=== PATIENT | male | born 1945 | race Caucasian/White ===

== ENCOUNTER 2018-12-20 12:13 | Observation (INO) ==
--- NOTE | 2018-12-20 12:28 | Emergency Department Note ---
Disposition Clinical Impression: Sinus tachycardia, Lightheadedness, Pre-syncope, Orthostatic dizziness Disposition: Admitted As Inpatient Condition: Fair Time of Disposition: 19:47 Arrhythmia/Palpitations HPI - General Chief Complaint: ED Arrhythmia/Palpitations Stated Complaint: dysrythmia Time Seen by Provider: 12/20/18 12:14 Source: patient, EMS Limitations: no limitations - History of Present Illness HPI Narrative: 73-year-old male past medical history of the last 2 weeks experiencing palpitations, shortness breath lightheadedness and dizziness was stented by Dr. Morfin approximately 9 days ago for coronary artery blockage. Patient believed he was in atrial fibrillation but was found to be in SVT at that time was put on 25 mg of metoprolol succinate for rate control her. Patient states he has continued being lightheaded/dizzy since this time that this morning he experienced a presyncopal episode at home. Patient denies any trauma during this event since he was able to sit down on the floor but continued to be dizzy and nearly lost consciousness. Patient states that when he feels this way he also gets short of breath. Patient also notes he has been having some dark colored stools consistent with melena over the past few days. However he denies any other concerns or complaints at this time. Upon my initial evaluation, my general impression is that the patient is tachycardic into the 140 range, he is otherwise awake, alert, oriented, engaged to conversation and answering questions appropriately. There are no overt lat eralizing signs, the patient is in no acute distress; their skin appears to be normal in color, they are not pale, not cyanotic, and not diaphoretic, they are sitting up in hospital bed interacting appropriately with environment. Pt Subjective Complaint: rapid heart beat, "heart racing" Onset (ago): week(s) Duration: intermittent Severity: severe, similar to previous episodes Context: occurred during rest Arrhythmia History: on anti-coagulants Associated symptoms: Reports: shortness of breath, near-syncope Treatments prior to arrival: beta-maureen - Related Data Home Medications Medication Instructions Recorded Confirmed Aspirin [Lo-Dose Aspirin EC] 81 mg PO DAILY 12/02/18 12/20/18 Atorvastatin [Lipitor] 10 mg PO HS 12/02/18 12/20/18 Cetirizine HCl [Allergy Relief] 10 mg PO DAILY 12/02/18 12/20/18 Chlorthalidone 25 mg PO DAILY 12/02/18 12/20/18 Docusate Sodium [Dulcolax Stool 100 mg PO DAILY 12/02/18 12/20/18 Softener] Enalapril Maleate [Vasotec] 20 mg PO BID 12/02/18 12/20/18 Metoprolol Succinate [Kapspargo 25 mg PO DAILY 12/02/18 12/20/18 Sprinkle] Naproxen Sod/Diphenhydram HCl 1 each PO HS PRN 12/02/18 12/20/18 [Aleve Pm Caplet] Potassium Chloride [K-Tab ER] 20 meq PO BID 12/02/18 12/20/18 Terazosin HCl 10 mg PO DAILY 12/02/18 12/20/18 Previous Rx's Medication Instructions Recorded Ticagrelor [Brilinta] 90 mg PO BID #60 tablet 12/02/18 Allergies Allergy/AdvReac Type Severity Reaction Status Date / Time No Known Allergies Allergy Unverified 11/30/18 08:38 Review of Systems: *See History of Present Illness for more detail Constitutional: Denies: fever, chills Cardiovascular: Denies: chest pain Respiratory: Admits: dyspnea, denies: cough, hemoptysis Gastrointestinal: Denies: abdominal pain, nausea, vomiting, diarrhea, constipation, hematemesis, melena, hematochezia Genitourinary: Denies: hematuria Musculoskeletal: Denies: back pain, neck pain Neurological: Admits weakness, lightheadedness dizziness, presyncope. Denies: headache, numbness, paresthesias, difficulty with ambulation. Endocrine: Denies: fatigue All systems ED: reviewed and negative except as stated. Review of Systems: As Per HPI Past Medical History - Past Medical History Medical history: Reports: hypertension Psychiatric history: Reports: no psych history - Social History Smoking Status: Never smoker Smokeless Tobacco Status: No Alcohol use: Reports: none Drug use: Reports: none Physical Exam Constitutional: No acute distress, [id number], engaged to conversation, speech is fluid, answers questions appropriately Neuro: GCS 15, no overt focal neurological deficits Head: Atraumatic, normocephalic Eyes: Pupils equal, round and reactive to light, no scleral icterus, no conjunctival injection Neck: Trachea midline without deviation. Anterior neck is supple without swelling. *Chest: Symmetric chest wall rise *Heart: Cardiac rate is tachycardic with an irregular rhythm with S1 and S2 , no S3 or S4 appreciated, no murmurs, gallops, rubs, or clicks. *Lungs: Lungs are clear to auscultation bilaterally, without accessory muscle use or prolonged expiratory phase. No wheezes, rhonchi or stridor appreciated. Abdomen: Abdomen is flat, soft to palpation, normal bowel sounds. No abdominal bruit auscultated. Non-distended, non-rigid, no organomegaly, no ascites appreciated. No pulsatile mass, no tenderness or guarding to palpation in all four quadrants, no rebound Extremities: Normal capillary refill without evidence of pedal edema, joint swelling or erythema. Pulses/motor intact in extremities. Psychiatric exam: Patient displays a normal affect and mood for the environment. No overt signs of hallucination. Integumentary: warm, dry, intact, normal color. No rash, cyanosis, diaphoresis, erythema, or pallor - General Limitations: no limitations General appearance: alert, in no apparent distress Course Course Narrative: EKG/old EKG, chest x-ray, basic labs to include troponin, occult stool and TSH. D-dimer. - Reevaluation(s) Reevaluation #1: Patient found to have elevated d-dimer we will get CTA. Patient reports to my attending physician that he had been exerting himself doing yardwork recently feels that he may be dehydrated. We will give him 1 L of fluid and reassess. This may explain patient's tachycardia Reevaluation #2: Patient heart rate down to the 90s prior to ambulation. Upon standing the patient's heart rate went up to 140. We will give patient additional 2 L of fluid as at 110 kg he is able to tolerate 3 L without difficulty in the setting of no prior CHF history. Labs are otherwise unremarkable. Vital Signs Temperature 98.6 F 12/20/18 12:18 Pulse Rate 135 12/20/18 12:18 Respiratory Rate 20 12/20/18 12:18 Blood Pressure 117/79 12/20/18 12:18 O2 Sat by Pulse Oximetry 95 12/20/18 12:18 Temperature 98.6 F 12/20/18 12:18 Pulse Rate 99 12/20/18 17:32 Respiratory Rate 16 12/20/18 17:32 Blood Pressure 134/98 12/20/18 17:32 O2 Sat by Pulse Oximetry 95 12/20/18 17:32 Oxygen Delivery Oxygen Delivery Room Air Arrhythmia/Palpitations - [facility] Narrative Medical decision making narrative: The patients EKG, imaging, and laboratory results show slightly low white count, elevated d-dimer without findings of pulmonary embolism on CTA. Positive stool Hemoccult. Otherwise negative workup. . Evaluation results were discussed with the patient and their family member(s) at bedside. Patient was given time to ask questions and state concerns. The patient states that they have had significant relief of their symptoms with our management here in the ED. upon attempting to ambulate the patient he became lightheaded and dizzy and tachycardic a second time after 2 L of fluid. The patient will be admitted to the hospitalist medicine service for further evaluation and management of tachycardia, orthostatic intolerance, lightheadedness and dizziness. . The patient verbalizes their understanding and agreement with this plan and is hemodynamically stable at the time of admission. - Lab Data Lab results reviewed: Yes I reviewed the patient's lab results. Result diagrams: 12/20/18 12:37 12/20/18 12:37 Lab Results 12/20/18 12/20/18 12/20/18 Range/Units 12:37 12:37 12:37 WBC 14.1 H (4.3-11.1) K/mcL RBC 4.88 (4.19-5.50) M/mcL Hgb 13.7 (12.9-16.9) g/dL Hct 40.5 (37.5-50.1) % MCV 83.0 (83.0-100.0) fL MCH 28.1 (28.0-33.3) pg MCHC 33.8 (31.6-35.5) g/dL RDW 12.3 (11.5-14.5) % Plt Count 243 (140-400) K/mcL MPV 9.7 (9.4-12.4) fL Immature Gran % 0.6 (0-4) % Seg Neutrophils % 83.1 % Lymphocytes % 11.7 % Monocytes % 4.1 % Eosinophils % 0.3 % Basophils % 0.2 % Neutrophils # 11.7 H (1.6-8.9) K/mcL Lymphocytes # 1.6 (0.6-4.6) K/mcL Monocytes # 0.6 (0.0-1.3) K/mcL Eosinophils # 0.0 (0.0-0.6) K/mcL Basophils # 0.0 (0.0-0.2) K/mcL PT 12.1 (9.4-12.1) Seconds INR 1.1 APTT 28.8 (26.0-36.0) Seconds D-Dimer 2134 H (0-500) ng/mLFEU Sodium 138 (136-145) mEq/L Potassium 3.7 (3.5-5.1) mEq/L Chloride 106 (98-107) mEq/L Carbon Dioxide 24 (23-29) mEq/L BUN 52 H (8-23) mg/dL Creatinine 1.09 (0.70-1.30) mg/dL Est GFR ( Amer) > 60 (> 60) Est GFR (Non-Af Amer) > 60 (> 60) BUN/Creatinine Ratio 48 H (6-26) Glucose 144 H (70-105) mg/dL Calculated Osmolality 303 H (280-300) Calcium 9.6 (8.6-10.3) mg/dL Troponin I < 0.03 (< 0.04) ng/mL TSH 1.323 (0.340-5.600) mcIU/mL Stool Occult Bld Scrn (Negative) 12/20/18 Range/Units 13:21 WBC (4.3-11.1) K/mcL RBC (4.19-5.50) M/mcL Hgb (12.9-16.9) g/dL Hct (37.5-50.1) % MCV (83.0-100.0) fL MCH (28.0-33.3) pg MCHC (31.6-35.5) g/dL RDW (11.5-14.5) % Plt Count (140-400) K/mcL MPV (9.4-12.4) fL Immature Gran % (0-4) % Seg Neutrophils % % Lymphocytes % % Monocytes % % Eosinophils % % Basophils % % Neutrophils # (1.6-8.9) K/mcL Lymphocytes # (0.6-4.6) K/mcL Monocytes # (0.0-1.3) K/mcL Eosinophils # (0.0-0.6) K/mcL Basophils # (0.0-0.2) K/mcL PT (9.4-12.1) Seconds INR APTT (26.0-36.0) Seconds D-Dimer (0-500) ng/mLFEU Sodium (136-145) mEq/L Potassium (3.5-5.1) mEq/L Chloride (98-107) mEq/L Carbon Dioxide (23-29) mEq/L BUN (8-23) mg/dL Creatinine (0.70-1.30) mg/dL Est GFR ( Amer) (> 60) Est GFR (Non-Af Amer) (> 60) BUN/Creatinine Ratio (6-26) Glucose (70-105) mg/dL Calculated Osmolality (280-300) Calcium (8.6-10.3) mg/dL Troponin I (< 0.04) ng/mL TSH (0.340-5.600) mcIU/mL Stool Occult Bld Scrn Positive A (Negative) - Radiology Data Radiology results reviewed: Yes I reviewed the patient's radiology results. Chest X-Ray 12/20/18 12:23 IMPRESSION: No acute findings D/ / Nunu Maciel MD / Nunu Maciel MD Interpreting Provider: Nunu Maciel MD Chest CTA 12/20/18 13:05 IMPRESSION: No evidence of pulmonary embolism or acute pulmonary abnormality. Scattered pulmonary nodules measuring up to 3 mm. No routine follow-up recommended. D/ / Nunu Maciel MD / Nunu Maciel MD Interpreting Provider: Nunu Maciel MD - EKG Data EKG attestation: Yes I reviewed and interpreted this EKG. EKG results narrative: The patients EKG shows a sinus tachycardia with several multifocal PACs and PVCs noted at a computer analyzed rate of 137 beats per minute, DE interval of 86 milliseconds, a QRS duration of 70 milliseconds, a QT/QTc interval of 307 / 464 milliseconds respectively. There are no significant ST segment elevations, depressions, pathologic Q waves, abnormal T-wave inversions, nor any other signs of acute ischemic change. This EKG that was performed today is generally consistent in morphology with prior EKG that was performed on 12/02/2017. Attestation Statement - Attestation Attestation: I, Stiven Davenport, examined this patient and my medical decision-making was reviewed with the NEWS INTERN/PA/Advanced Practice Nurse/Resident Physician. I agree with the documented findings, disposition and treatment plan as described except to the extent set forth below. 73-year-old male presents emergency Department with concerns of weakness, fatigue and a near syncopal episode this morning. Patient noted that he did not feeling unwell over the past few days. Today he walked downstairs to shave, set on toilet because he did not feel well. When he stood up he became lightheaded and had to sit down on the floor before passing out. Patient did not actually lose consciousness. He did not hit his head or have other injury. He denied chest pain that time. Patient reports having melanotic stool over the past week. He had a history of similar GI bleeding in the past. He takes Plavix after he had a recent heart catheterization by Dr. Garcia within the past 2 weeks. Rectal exam was positive for occult blood. He also reports that he has had decreased by mouth intake and has been outside in the heat over the past couple days and feels dehydrated. During her initial evaluation the patient was significantly tachycardic with a rate of 150 which appeared to be a sinus tachycardia with multiple PACs and PVCs on the EKG. I reviewed the EKG with the resident and agree with the interpretation. Pt improved considerably with IVFs but became symptomatic and tachycardic again with standing. He margarito be admitted for further care and evaluation.
[2018-12-20] MEDS ORDERED: 0.9 % Sodium Chloride 1,000 ML IVC ONE (12:44)
[2018-12-20 12:47] LABS: Basophils % 0.2 %; Eosinophils % 0.3 %; Hematocrit 40.5 % (37.5-50.1); Hemoglobin 13.7 g/dL (12.9-16.9); Immature Granulocytes % 0.6 % (0-4); Lymphocytes # 1.6 K/mcL (0.6-4.6); Lymphocytes % 11.7 %; Mean Corpuscular HGB Conc 33.8 g/dL (31.6-35.5); Mean Corpuscular Hemoglobin 28.1 pg (28.0-33.3); Mean Platelet Volume 9.7 fL (9.4-12.4); Monocytes # 0.6 K/mcL (0.0-1.3); Monocytes % 4.1 %; Neutrophils # 11.7 K/mcL (1.6-8.9); Platelet Count 243 K/mcL (140-400); Red Blood Count 4.88 M/mcL (4.19-5.50); Red Cell Distribution Width 12.3 % (11.5-14.5); Segmented Neutrophils % 83.1 %; White Blood Count 14.1 K/mcL (4.3-11.1)
[2018-12-20 12:54] LABS: INR 1.1; Prothrombin Time 12.1 Seconds (9.4-12.1)
[2018-12-20 12:57] LABS: Activated Partial Thrombo Time 28.8 Seconds (26.0-36.0)
[2018-12-20] MEDS ORDERED: Isovue-370 500 ML BOTTLE IVP ONE (13:05)
[2018-12-20 13:08] LABS: BUN/Creatinine Ratio 48 (6-26); Blood Urea Nitrogen 52 mg/dL (8-23); Calcium 9.6 mg/dL (8.6-10.3); Carbon Dioxide 24 mEq/L (23-29); Chloride 106 mEq/L (98-107); Glucose 144 mg/dL (70-105); Osmolality,Calculated 303 (280-300); Potassium 3.7 mEq/L (3.5-5.1); Sodium 138 mEq/L (136-145); Troponin I < 0.03 ng/mL (< 0.04); eGFR For African Americans > 60 (> 60); eGFR For Non-African Americans > 60 (> 60)
[2018-12-20 13:22] LABS: Thyroid Stimulating Hormone 1.323 mcIU/mL (0.340-5.600)
[2018-12-20] MEDS ORDERED: 0.9 % Sodium Chloride 1,000 ML ONE (14:13)
[2018-12-20] MEDS: 0.9 % Sodium Chloride 1,000 ML IVC SCH ×2 (14:28→16:00)
[2018-12-20] MEDS ORDERED: *HR* Promethazine 25 MG/ML VIAL IVP PRN (17:11)
[2018-12-20] MEDS ORDERED: Naloxone 0.4 MG/ML INJ IVP PRN (17:11)
--- NOTE | 2018-12-20 18:18 | Internal Med History&Physical ---
Date of Encounter: 12/20/18 Time of Encounter: 18:11 Internal Medicine - H&P: HPI Chief complaint: Palpatations Admitted From: Home Plans for Post Hospital Care: Home History of present illness: Mr. Bennett is a 73 year old male with history of CAD status post recent stent placement and HTN presents with palpitations. Patient had recent abnormal stress test so went for cardiac catheterization leading to RCA stent placement 12/02/18 without complications. Says he had some tachycardia issues at that time but resolved. No history of arrhythmias or atrial fibrillation. Has been on metoprolol succinate 25 mg since that time and has been compliant with this. Yesterday was out in the sun at a pool green party and thinks that he became dehydrated. Today felt that his heart rate was going fast and took his rate at home and it was in the 140s so came in to be seen. Did note some lightheadedness and dizziness with standing up. Patient denies recent illness, nausea vomiting, or diarrhea/constipation issues. Did have a recent dark tarry stool and is scheduled for a colonoscopy next week. Stool was formed and no ruthie rrhea. Past Med Surg Social Fam HX - Past Medical History Medical history: hypertension Additional medical history: BACK SURGERY, PNEUMOTHORAX, SPINAL STENOSIS Psychiatric history: no psych history - Past Surgical History Additional surgical history: HERNIATED DISK, 1989 BACK SURGERY, 2010 PNEUMTHORAX - Social History Smoking Status: Never smoker Smokeless Tobacco Status: No Alcohol use: none Drug use: none Internal Medicine - H&P: Meds Aspirin [Lo-Dose Aspirin EC] 81 mg PO DAILY 12/02/18 [History] Atorvastatin [Lipitor] 10 mg PO HS 12/02/18 [History] Cetirizine HCl [Allergy Relief] 10 mg PO DAILY 12/02/18 [History] Chlorthalidone 25 mg PO DAILY 12/02/18 [History] Docusate Sodium [Dulcolax Stool Softener] 100 mg PO DAILY 12/02/18 [History] Enalapril Maleate [Vasotec] 20 mg PO BID 12/02/18 [History] Metoprolol Succinate [Kapspargo Sprinkle] 25 mg PO DAILY 12/02/18 [History] Naproxen Sod/Diphenhydram HCl [Aleve Pm Caplet] 1 each PO HS PRN 12/02/18 [History] Potassium Chloride [K-Tab ER] 20 meq PO BID 12/02/18 [History] Terazosin HCl 10 mg PO DAILY 12/02/18 [History] Ticagrelor [Brilinta] 90 mg PO BID #60 tablet 12/02/18 [Rx] Allergy/AdvReac Type Severity Reaction Status Date / Time No Known Allergies Allergy Unverified 11/30/18 08:38 All Systems PM: A 10-system review of systems was performed and is negative for pertinent findings except as documented above in the HPI. Review of systems: General: Fevers / Chills / Weight loss / Night sweats Eyes: Blurry Vision / Change in Vision HENT: Ear Pain / Ear Drainage / Rhinorrhea / Throat Pain / Lymphadenopathy Cardiovascular: Chest Pain / Palpatations / Orthopnea / SOMMERS / Weight gain / lightheadedness / dizziness Lungs: Dyspnea / Wheezing / Cough / Sputum production / Pleurisy Abdomen: Abdomen pain / Abdominal distention / Nausea / Vomiting / Diarrhea / Const / Melena / BRBPR : Dysuria / Urinary Frequency / Urinary Urgency / Hematuria Extremities: LE edema / Ext pain / Ext erythema Skin: Rashes / Abrasions / Contusions Psych: Hallucinations / Anxiety / Depression Neuro: Weakness / Numbness / Tingling / Facial Droop / Dysphagia - Constitutional Vitals: Temp Pulse Resp BP Pulse Ox 98.6 F 99 16 134/98 95 12/20/18 12:18 12/20/18 17:32 12/20/18 17:32 12/20/18 17:32 12/20/18 17:32 Exam: General: Ill-appearing and in no acute distress HEENT: No erythema of posterior pharynx. No exudates. Lymphatics: No mandibular or cervical lymphadenopathy Cardiovascular: RRR. No murmurs. No chest wall tenderness. Lungs: Clear to auscelltation bilaterally. Regular chest rise. Abdomen: Non-tender. No rebound or gaurding. Nl bowel sounds. Extremities: No edema. 2+ pulses radial and pedal pulses Skin: No rahses, abrasions, or contusions. Nl cap refill. Psych: Nl attention. 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 5/5 strength. Sensation to light touch and pinprick intact. Internal Med - H&P Results - Labs CBC & Chem 7: 12/20/18 12:37 12/20/18 12:37 Labs: Short CBC 12/20/18 Range/Units 12:37 WBC 14.1 H (4.3-11.1) K/mcL Hgb 13.7 (12.9-16.9) g/dL Hct 40.5 (37.5-50.1) % Plt Count 243 (140-400) K/mcL Neutrophils # 11.7 H (1.6-8.9) K/mcL BMP 12/20/18 12:37 Sodium 138 Potassium 3.7 Chloride 106 Carbon Dioxide 24 BUN 52 H Creatinine 1.09 Glucose 144 H Calcium 9.6 Cardiac Enzymes 12/20/18 Range/Units 12:37 Troponin I < 0.03 (< 0.04) ng/mL - Impressions ITS Impressions Chest X-Ray 12/20/18 12:23 IMPRESSION: No acute findings D/ / Nunu Maciel MD / Nunu Maciel MD Interpreting Provider: Nunu Maciel MD Chest CTA 12/20/18 13:05 IMPRESSION: No evidence of pulmonary embolism or acute pulmonary abnormality. Scattered pulmonary nodules measuring up to 3 mm. No routine follow-up recommended. D/ / Nunu Maciel MD / Nunu Maciel MD Interpreting Provider: Nunu Maciel MD - Assessment and Plan (1) Symptomatic tachycardia Current Visit: Yes Status: Acute Assessment and plan: Patient with history of CAD status post recent stent placement and HTN presents with palpitations in the setting of heart rate in the 140s initially sinus tachycardia but otherwise stable vitals, unremarkable physical exam, leukocytosis to 14.1, normal electrolytes, negative troponin, and chest imaging without evidence of acute pathology. -Appears that patient is in sinus tachycardia: Concern for volume depletion patient is status post 3 L of fluids but still heart rate around 100 to 110 Concern for infection given leukocytosis, however, no signs or symptoms to suggest possible source. May just be reactive. Concern for PE but negative CTA Patient has been compliant with metoprolol so beta maureen withdrawal unlikely Does not appear to be anxiety related as patient currently appears calm Had one episode of melena but stool is formed and hemoglobin normal so unlikely to contributing to hypovolemia significantly PLAN: - Will do LR@125ml/hr overnight - Telemetry - UA - Repeat troponin - Mag level - Orthostatics before discharge - We will have cardiology see patient in the morning (2) Hypovolemia dehydration Current Visit: Yes Status: Acute Assessment and plan: See above (3) CAD (coronary artery disease) Current Visit: Yes Status: Acute Assessment and plan: Patient had recent abnormal stress test so went for cardiac catheterization le ading to RCA stent placement 12/02/18 without complications. Qualifiers: Coronary Disease-Associated Artery/Lesion type: [place] artery [place] vs. transplanted heart: [place] heart Associated angina: without angina Qualified Code(s): I25.10 - Atherosclerotic heart disease of [place] coronary artery without angina pectoris (4) Melena Current Visit: Yes Status: Acute Assessment and plan: Patient had one episode of melena recently and is scheduled for a colonoscopy outpatient. Hemoglobin normal. Do not feel that this seems to be done emergently. - Trend hemoglobin (5) Hypertension Current Visit: Yes Status: Acute Assessment and plan: Continue home medications Qualifiers: Hypertension type: essential hypertension Qualified Code(s): I10 - Essential (primary) hypertension - Summary of Assessment and Plan Summary of Assessment and Plan: SCDs
[2018-12-20] MEDS: Lisinopril 20 MG TABLET PO SCH (20:59)
[2018-12-20] MEDS: *HR* Ticagrelor 90 MG TABLET PO SCH (21:00)
[2018-12-21 03:58] LABS: Basophils % 0.2 %; Eosinophils # 0.1 K/mcL (0.0-0.6); Eosinophils % 0.7 %; Hematocrit 31.7 % (37.5-50.1); Hemoglobin 10.6 g/dL (12.9-16.9); Immature Granulocytes % 0.6 % (0-4); Lymphocytes # 1.7 K/mcL (0.6-4.6); Lymphocytes % 15.8 %; Mean Corpuscular HGB Conc 33.4 g/dL (31.6-35.5); Mean Corpuscular Hemoglobin 28.3 pg (28.0-33.3); Mean Corpuscular Volume 84.8 fL (83.0-100.0); Monocytes # 0.7 K/mcL (0.0-1.3); Monocytes % 6.7 %; Neutrophils # 8.4 K/mcL (1.6-8.9); Platelet Count 228 K/mcL (140-400); Red Blood Count 3.74 M/mcL (4.19-5.50); Red Cell Distribution Width 12.4 % (11.5-14.5)
[2018-12-21 04:18] LABS: BUN/Creatinine Ratio 41 (6-26); Blood Urea Nitrogen 39 mg/dL (8-23); Calcium 8.2 mg/dL (8.6-10.3); Carbon Dioxide 24 mEq/L (23-29); Chloride 109 mEq/L (98-107); Glucose 100 mg/dL (70-105); Magnesium 1.9 mg/dL (1.6-2.6); Osmolality,Calculated 301 (280-300); Potassium 3.2 mEq/L (3.5-5.1); Sodium 141 mEq/L (136-145); eGFR For African Americans > 60 (> 60); eGFR For Non-African Americans > 60 (> 60)
[2018-12-21] MEDS: Loratadine 10 MG TABLET PO SCH (09:35)
[2018-12-21] MEDS: Lisinopril 20 MG TABLET PO SCH ×2 (09:35→21:47)
[2018-12-21] MEDS: Aspirin Enteric Coated 81 MG Tablet PO SCH (09:35)
[2018-12-21] MEDS: Metoprolol XL (24 HR) Succ 25 MG TAB.ER.24H PO SCH (09:38)
[2018-12-21] MEDS: *HR* Ticagrelor 90 MG TABLET PO SCH ×2 (09:38→21:48)
--- NOTE | 2018-12-21 10:01 | Cardiology Consult Note ---
<Gisela Carbajal - Last Filed: 12/21/18 11:56> Date of Encounter: 12/21/18 Time of Encounter: 09:00 Assessment and Plan (1) Tachycardia Current Visit: Yes Status: Acute Appears to be ST vs. AT in the setting of acute GI bleed. Continue BB. Continue supportive care with IVF. HgB drop this AM to 10, was 13. GI following--plan for upper GI today. (2) CAD (coronary artery disease) Current Visit: Yes Status: Acute Hx of CAD s/p PCI to dRCA 12/02/18. EF preserved, otherwise mild non-obstructive CAD. Continue uninterrupted DAPT if able, continue statin, and BB. May need to consider changing brilinta to plavix, will await endoscopy reports Qualifiers: Coronary Disease-Associated Artery/Lesion type: [place] artery [place] vs. transplanted heart: [place] heart Associated angina: without angina Qualified Code(s): I25.10 - Atherosclerotic heart disease of [place] coronary artery without angina pectoris (3) Melena Current Visit: Yes Status: Acute Discussion w patient/family: The assessment and plan as outlined above was discussed with the patient and/or family members who expressed understanding and agreement. All questions were answered. Thank you for involving us in the care of your patient. Please call with any questions. The patient will be discussed and reviewed with Dr. Peres; changes to be made accordingly. History of Present Illness Consult date: 12/21/18 Requesting physician: Jean Claude Gabriel Consult reason: GI bleed, recent PCI Chief complaint: Palpitations, melena History of present illness: Mr. Bennett is a 73 year old male history of CAD status post recent stent (RCA EBONY on 12/02/18) placement and HTN presents with palpitations and complaints of melanotic stool. He reports being outside all day on Friday at a [employer] party and felt as though he was dehydration. Additionally, he reported increase in frequency of melantoic stools therefore he went to the ED for further evaluation. Of note, he reports outpatient pending GI work-up due to melena. Palpitations have been ongoing for the past 6 months, typically improve with rest and occur with exertion. Again, recent EBONY placement to distal RCA on 12/02; otherwise mild, non-obstructive CAD. He denies chest pain or discomfort. Past Med Surg Social Fam HX - Past Medical History Attestation: Yes The following information was validated with the patient. Source: patient Medical history: coronary artery disease, hypertension Additional medical history: BACK SURGERY, PNEUMOTHORAX, SPINAL STENOSIS Psychiatric history: no psych history - Past Surgical History Surgical History: angioplasty/stent Additional surgical history: HERNIATED DISK, 1989 BACK SURGERY, 2010 PNEUMTHORAX - Social History Smoking Status: Never smoker Smokeless Tobacco Status: No Alcohol use: none Drug use: none - Family History Mother History Unknown: Yes Father History Unknown: Yes Medications and Allergies Aspirin [Lo-Dose Aspirin EC] 81 mg PO DAILY 12/02/18 [History] Atorvastatin [Lipitor] 10 mg PO HS 12/02/18 [History] Cetirizine HCl [Allergy Relief] 10 mg PO DAILY 12/02/18 [History] Chlorthalidone 25 mg PO DAILY 12/02/18 [History] Docusate Sodium [Dulcolax Stool Softener] 100 mg PO DAILY 12/02/18 [History] Enalapril Maleate [Vasotec] 20 mg PO BID 12/02/18 [History] Metoprolol Succinate [Kapspargo Sprinkle] 25 mg PO DAILY 12/02/18 [History] Naproxen Sod/Diphenhydram HCl [Aleve Pm Caplet] 1 each PO HS PRN 12/02/18 [History] Potassium Chloride [K-Tab ER] 20 meq PO BID 12/02/18 [History] Terazosin HCl 10 mg PO DAILY 12/02/18 [History] Ticagrelor [Brilinta] 90 mg PO BID #60 tablet 12/02/18 [Rx] Allergy/AdvReac Type Severity Reaction Status Date / Time No Known Allergies Allergy Unverified 11/30/18 08:38 All Systems Review: The remainder of the systems were reviewed and are negative - Cardiovascular Cardiovascular: as per HPI Physical Examination Vital Signs, Last 4 Hours Temp Pulse Resp BP Pulse Ox 12/21/18 07:13 98.0 F 104 18 125/74 97 General: Conversant, No Apparent Distress HEENT: Atraumatic, Normocephaly, Mucus Membranes Moist Cardiac: Other (tachycardiac) Lungs: Normal Breath Sounds Neuro: Alert and responsive Abdomen: Soft Skin: No rashes noted on visualized skin Musculoskeletal: No Chest Wall Tenderness Extremities: No Edema, Normal Pulses Results 12/21/18 02:54 12/21/18 02:54 Lab Results 12/20/18 12/20/18 12/20/18 12:37 12:37 12:37 WBC 14.1 H Hgb 13.7 Hct 40.5 Plt Count 243 INR 1.1 APTT 28.8 D-Dimer 2134 H Sodium 138 Potassium 3.7 Chloride 106 Carbon Dioxide 24 BUN 52 H Creatinine 1.09 Glucose 144 H Calcium 9.6 Magnesium Troponin I < 0.03 TSH 1.323 12/20/18 12/20/18 12/21/18 18:37 18:37 02:54 WBC 11.0 Hgb 10.6 L D Hct 31.7 L Plt Count 228 INR APTT D-Dimer Sodium Potassium Chloride Carbon Dioxide BUN Creatinine Glucose Calcium Magnesium 1.5 L Troponin I < 0.03 TSH 12/21/18 02:54 WBC Hgb Hct Plt Count INR APTT D-Dimer Sodium 141 Potassium 3.2 L Chloride 109 H Carbon Dioxide 24 BUN 39 H Creatinine 0.94 Glucose 100 Calcium 8.2 L Magnesium 1.9 Troponin I TSH Active Medications Aspirin (Aspirin Ec) 81 mg PO DAILY [facility] Stop: 06/22/19 09:01 Last Admin: 12/21/18 09:35 Dose: 81 mg Documented by: Atorvastatin Calcium (Lipitor) 10 mg PO [facility] Stop: 06/21/19 21:01 Last Admin: 12/20/18 20:59 Dose: 10 mg Documented by: Chlorthalidone (Chlorthalidone) 25 mg PO DAILY [facility] Stop: 06/22/19 09:01 Last Admin: 12/21/18 09:38 Dose: 25 mg Documented by: Docusate Sodium (Colace) 100 mg PO DAILY [facility]; Protocol Stop: 06/22/19 09:01 Last Admin: 12/21/18 09:35 Dose: 100 mg Documented by: Lisinopril (Zestril) 20 mg PO BID [facility] Stop: 06/21/19 21:01 Last Admin: 12/21/18 09:35 Dose: 20 mg Documented by: Loratadine (Claritin) 10 mg PO DAILY [facility] Stop: 06/22/19 09:01 Last Admin: 12/21/18 09:35 Dose: 10 mg Documented by: Metoprolol Succinate (Toprol Xl) 25 mg PO DAILY [facility] Stop: 06/22/19 09:01 Last Admin: 12/21/18 09:38 Dose: 25 mg Documented by: Naloxone HCl (Narcan) 0.4 mg IVP Q2MPRN PRN PRN Reason: SEE COMMENTS Stop: 06/21/19 17:12 Pantoprazole Sodium (Protonix) 40 mg IVP Q12HR [facility] Stop: 06/22/19 08:33 Last Admin: 12/21/18 10:02 Dose: 40 mg Documented by: Potassium Chloride (Potassium Chloride) 40 meq PO BID [facility] Stop: 06/22/19 08:03 Last Admin: 12/21/18 09:37 Dose: 40 meq Documented by: Promethazine HCl (Phenergan) 12.5 mg IVP Q6HR PRN PRN Reason: Nausea And Vomiting Stop: 06/21/19 17:12 Terazosin HCl (Hytrin) 10 mg PO DAILY [facility] Stop: 06/22/19 09:01 Last Admin: 12/21/18 09:38 Dose: 10 mg Documented by: Ticagrelor (Brilinta) 90 mg PO BID [facility] Stop: 06/21/19 21:01 Last Admin: 12/21/18 09:38 Dose: 90 mg Documented by: - Imaging and Cardiology Stress Test: report reviewed Echo: report reviewed Cardiac cath: report reviewed Other Results: Poor telemetry tracing - EKG Interpretation EKG results cardiology: personally reviewed Consult Discharge Plan - Plan Referrals: Abimbola Murcia MD [Primary Care Provider] - <Gavin Peres A - Last Filed: 12/21/18 15:16> Date of Encounter: 12/21/18 - Attending Attestation I have personally performed a face to face evaluation on this patient. I have reviewed and agree with the documented findings and care plan as documented by the CAR STEREO INSTALLER. History and Exam by me shows: Pt with recent PCI, needs to be on dual antiplatelet uninterrupted. GI workup for melena Thanks for the consult, please call with questions. Gavin Peres MD FAC Assessment and Plan Discussion w patient/family: The assessment and plan as outlined above was discussed with the patient and/or family members who expressed understanding and agreement. All questions were answered. Thank you for involving us in the care of your patient. Please call with any questions. History of Present Illness History of present illness: Mr. Bennett is a 73 year old male All Systems Review: The remainder of the systems were reviewed and are negative Physical Examination Vital Signs, Last 4 Hours Temp Pulse Resp BP Pulse Ox 12/21/18 12:51 97.7 F 104 18 118/78 95 Results 12/21/18 02:54 12/21/18 02:54 Lab Results 12/20/18 12/20/18 12/21/18 18:37 18:37 02:54 WBC 11.0 Hgb 10.6 L D Hct 31.7 L Plt Count 228 Sodium Potassium Chloride Carbon Dioxide BUN Creatinine Glucose Calcium Magnesium 1.5 L Troponin I < 0.03 12/21/18 02:54 WBC Hgb Hct Plt Count Sodium 141 Potassium 3.2 L Chloride 109 H Carbon Dioxide 24 BUN 39 H Creatinine 0.94 Glucose 100 Calcium 8.2 L Magnesium 1.9 Troponin I
[2018-12-21] MEDS: Pantoprazole 40 MG VIAL IVP SCH ×2 (10:02→17:58)
--- NOTE | 2018-12-21 11:24 | Gastroenterology Consult Note ---
<Mandy Carolina - Last Filed: 12/21/18 11:20> Date of Encounter: 12/21/18 Time of Encounter: 09:30 - Assessment and plan (1) Melena Current Visit: Yes Status: Acute Assessment and plan: Pt recently started on anticoagulants after stent placement. Will proceed with EGD today, may also need colonoscopy. (2) Symptomatic tachycardia Current Visit: Yes Status: Acute Assessment and plan: Likely due to anemia, cardiology following. - Time Spent With Patient Total time spent is greater than 50% in coordination of care (as documented) at patient's floor/unit and/or counseling patient: GI History of Present Illness - Data of Consult Patient: new to practice Consult date: 12/21/18 Requesting Physician: Jean Claude Gabriel - Consult Narrative Reason for consult: anemia, melena History of present illness: Mr. Bennett is a 73 year old male with history of CAD status post EBONY placement on 12/02/18, and HTN. He was started on brilinta and asa at the time of stent placement. He presented with palpitations and syncope. He reports black tarry stool on the day of admission and also today. He denies any recent illness, nausea, vomiting, GERD, or diarrhea/constipation issues. He reports a positive cologard 3 months ago and was scheduled to have colonoscopy done next week at [facility]. He denies any family history of colon cancer. Procedures: colonoscopy 2008 Dr Estes, normal per pt NSAIDS: aleve and asa Anticoagulants: brilinta Past Med Surg Social Fam HX - Past Medical History Medical history: coronary artery disease, hypertension Additional medical history: BACK SURGERY, PNEUMOTHORAX, SPINAL STENOSIS Psychiatric history: no psych history - Past Surgical History Surgical History: angioplasty/stent Additional surgical history: HERNIATED DISK, 1990 BACK SURGERY, 2011 PNEUMTHORAX - Social History Smoking Status: Never smoker Smokeless Tobacco Status: No Alcohol use: none Drug use: none - Family History Mother History Unknown: Yes Father History Unknown: Yes Review of Systems: GI: as per [place] GENERAL: denies fever, has some chills EYES: denies yellow discoloration ENT: denies pain with swallowing or difficulty swallowing CARDIO: see HPI RESP: No Shortness of breath with exertion : denies change in color of urine NEURO: weakness HEME: Denies any bruising MS: chronic joint pain, joint swelling or back pain. DERM: denies rash or itching PSYCH: Denies history of anxiety or depression - Constitutional Vitals: Temp Pulse Resp BP Pulse Ox 98.4 F 98 16 106/71 93 12/21/18 11:06 12/21/18 11:06 12/21/18 11:06 12/21/18 11:06 12/21/18 11:06 Exam: CONSTITUTIONAL:alert, no acute distress.HEAD:normocephalic.EYES:no jaundice.NECK:no obvious swelling.HEART:regular rate and rhythm, no murmurs.LUNGS:bilateral good air entry.ABDOMEN:non distended, soft, non tender, no masses palpable, no organomegaly.RECTAL EXAM:Deferred.EXTREMITIES:no clubbing, cyanosis or edema.SKIN:no stigmata of chronic liver disease.NEUROLOGIC:no obvious focal defect. Results - Labs CBC & Chem 7: 12/21/18 02:54 12/21/18 02:54 Labs: Last Result 12/21/18 02:54 Calcium 8.2 L Entire Visit 12/21/18 02:54 Hgb 10.6 L D Hct 31.7 L - ABG ABG results: PT/INR, D-dimer PT 12.1 Seconds (9.4-12.1) 12/20/18 12:37 D-Dimer 2134 ng/mLFEU (0-500) H 12/20/18 12:37 - Impressions Impressions Chest X-Ray 12/20/18 12:23 IMPRESSION: No acute findings D/ / Nunu Maciel MD / Nunu Maciel MD Interpreting Provider: Nunu Maciel MD Chest CTA 12/20/18 13:05 IMPRESSION: No evidence of pulmonary embolism or acute pulmonary abnormality. Scattered pulmonary nodules measuring up to 3 mm. No routine follow-up recommended. D/ / Nunu Maciel MD / Nunu Maciel MD Interpreting Provider: Nunu Maciel MD Consult Discharge Plan - Plan Referrals: Abimbola Murcia MD [Primary Care Provider] - <Lalo Garcia - Last Filed: 12/21/18 13:28> Date of Encounter: 12/21/18 Time of Encounter: 11:00 - Time Spent With Patient Total time spent is greater than 50% in coordination of care (as documented) at patient's floor/unit and/or counseling patient: GI History of Present Illness - Data of Consult Requesting Physician: Jean Claude Gabriel - Consult Narrative History of present illness: Mr. Bennett is a 73 year old male - Constitutional Vitals: Temp Pulse Resp BP Pulse Ox 97.7 F 104 18 118/78 95 12/21/18 12:51 12/21/18 12:51 12/21/18 12:51 12/21/18 12:51 12/21/18 12:51 Results - Labs CBC & Chem 7: 12/21/18 02:54 12/21/18 02:54 Labs: Last Result 12/21/18 02:54 Calcium 8.2 L Entire Visit 12/21/18 02:54 Hgb 10.6 L D Hct 31.7 L - ABG ABG results: PT/INR, D-dimer PT 12.1 Seconds (9.4-12.1) 12/20/18 12:37 D-Dimer 2134 ng/mLFEU (0-500) H 12/20/18 12:37 - Impressions Impressions Chest CTA 12/20/18 13:05 IMPRESSION: No evidence of pulmonary embolism or acute pulmonary abnormality. Scattered pulmonary nodules measuring up to 3 mm. No routine follow-up recommended. D/ / Nunu Maciel MD / Nunu Mcaiel MD Interpreting Provider: Nunu Maciel MD - Attending Attestation I have personally performed a face to face evaluation on this patient. I have reviewed and agree with the care plan. History and Exam by me shows: Patient seen at the bedside denies abdominal pain on examination: Abdomen is soft. Assessment: Pt status post EBONY placement on 12/02/18, and HTN. He was started on brilinta and asa at the time of stent placement. Now with melena. Also patient had a recently positive: Warm and he was supposed to have a colonoscopy done at [facility]. Recommendation: EGD today to make sure patient does not have any bleeding ulcer if negative then we will need colon tomorrow
[2018-12-21] MEDS ORDERED: Lidocaine -MPF 2% 2 ML VIAL ONE (11:52)
[2018-12-21] MEDS ORDERED: *HR* Propofol 200 MG/20 ML VIAL IVP ONE (11:53)
--- NOTE | 2018-12-21 12:51 | Anesthesia Evaluation PreOp ---
Date of Encounter: 12/21/18 Time of Encounter: 12:48 - Past History Planned Operation: EGD Cardiac History: HTN, Arrhythmia (Afib), Cardiac Stent, Other (on brilinta from recent stent) Pulmonary History: Denies Any Significant HX PROCESS WORKER History: Denies Any Significant HX Other Medical History: Denies Any Significant HX Anesthesia History: No Prior Anesthetic Complications, Past Anesthesia Alcohol Use: none Drug use: none Medications and Allergies Aspirin [Lo-Dose Aspirin EC] 81 mg PO DAILY 12/02/18 [History] Atorvastatin [Lipitor] 10 mg PO HS 12/02/18 [History] Cetirizine HCl [Allergy Relief] 10 mg PO DAILY 12/02/18 [History] Chlorthalidone 25 mg PO DAILY 12/02/18 [History] Docusate Sodium [Dulcolax Stool Softener] 100 mg PO DAILY 12/02/18 [History] Enalapril Maleate [Vasotec] 20 mg PO BID 12/02/18 [History] Metoprolol Succinate [Kapspargo Sprinkle] 25 mg PO DAILY 12/02/18 [History] Naproxen Sod/Diphenhydram HCl [Aleve Pm Caplet] 1 each PO HS PRN 12/02/18 [History] Potassium Chloride [K-Tab ER] 20 meq PO BID 12/02/18 [History] Terazosin HCl 10 mg PO DAILY 12/02/18 [History] Ticagrelor [Brilinta] 90 mg PO BID #60 tablet 12/02/18 [Rx] Allergy/AdvReac Type Severity Reaction Status Date / Time No Known Allergies Allergy Unverified 11/30/18 08:38 - Meds/Allergy Pre-op Review Medications Reviewed: Yes Allergies Reviewed: Yes Beta Blockers on Current Med List: Yes (metoprolol) If Beta Blockers taken, Date/Time (Last Dose taken): 0938 Anesthesia Results - Labs 12/21/18 02:54 12/21/18 02:54 - Imaging EKG: report reviewed Additional studies: 12/02/2018 LEFT HEART CATH Stent w/ PTCA Single Major Vessel (EBONY dRCA) Indications: Abnormal Test - Stress Other- Abnormal Test- Stress Impressions: There is severe one vessel coronary artery disease. The left ventricle is normal and has normal contractility EF 60% Patient had successful PTCA/Drug-Eluting Stent placement in the distal RCA. 12/02/2018 echocardiogram w enhance Impressions: LVEF 55-60%. Mild concentric left ventricular hypertrophy. Mild left ventricular diastolic dysfunction. Grossly normal right ventricular structure and function. No significant valvular dysfunction. Unable to estimate RVSP due to lack of TR jet and IVC visualization. Anesthesia Exam Vital Signs/O2 Sat/Glucose, Most Recent Temp Pulse Resp BP Pulse Ox 97.7 F 104 18 118/78 95 12/21/18 12:51 12/21/18 12:51 12/21/18 12:51 12/21/18 12:51 12/21/18 12:51 Weight: 108 kg NPO (# of Hours): > 8hr - HEENT Pupil (Motor): Pupils equal Mallampati: II Teeth: Normal - PROCESS WORKER LOC: Oriented PROCESS WORKER Motor: Normal RUE, Normal LUE, Normal RLE, Normal LLE, Normal Face PROCESS WORKER Sensory: Normal: RUE, LUE, RLE, LLE, Face - Cardiac Rhythm: Irregular Murmur: None - Pulmonary Breath Sounds: bilateral Clear Respiratory Effort: Symmetrical Anesthesia Assess/Plan ASA Score: 3 Level of consciousness: Cooperative, Oriented Anesthetic Plan: MAC Monitoring Plan: Standard Monitors Recovery Plan: PACU
--- NOTE | 2018-12-21 13:47 | Anesthesia Evaluation Post Op ---
Date of Encounter: 12/21/18 Time of Encounter: 13:47 - Vital Signs Vital Signs: Vital Signs/O2 Sat/Glucose, Most Recent Temp Pulse Resp BP Pulse Ox 97.7 F 104 18 118/78 95 12/21/18 12:51 12/21/18 12:51 12/21/18 12:51 12/21/18 12:51 12/21/18 12:51 - Lungs Lungs: Clear Ascult./Percussion - Airway Airway: Non-obstructed - Cardiovascular Regular Rate - Mental Status Mental Status: Alert & Oriented, Answers Appropriately - Pain Pain Scale: 0 - Nausea Vomiting Nausea Vomiting: Not Present - Hydration Hydration: NPO - Discharge PostOp Status: Transfer Patient to floor
--- NOTE | 2018-12-21 14:44 | Internal Med Progress Note ---
Hospitalist Progress Note - Encounter Date of Encounter: 12/21/18 Time of Encounter: 14:41 - Subjective Interval History: Patient had a dark tarry stool again last night and a drop in his Hg. Was taken for EGD with evidence of gastric ulcer s/p clip. - Exam Vitals: Temp Pulse Resp BP Pulse Ox 97.7 F 104 18 118/78 95 12/21/18 12:51 12/21/18 12:51 12/21/18 12:51 12/21/18 12:51 12/21/18 12:51 Exam: General: Ill-appearing and in no acute distress HEENT: No erythema of posterior pharynx. No exudates. Lymphatics: No mandibular or cervical lymphadenopathy Cardiovascular: RRR. No murmurs. No chest wall tenderness. Lungs: Clear to auscelltation bilaterally. Regular chest rise. Abdomen: Non-tender. No rebound or gaurding. Nl bowel sounds. Extremities: No edema. 2+ pulses radial and pedal pulses Skin: No rahses, abrasions, or contusions. Nl cap refill. Psych: Nl attention. A&Ox3 Neuro: reservationist II-XII intact. 5/5 strength. Sensation to light touch and pinprick intact. - Assessment and Plan (1) Melena Current Visit: Yes Status: Acute Assessment and Plan: Patient had one episode of melena recently and is scheduled for a colonoscopy outpatient. Hemoglobin normal. Do not feel that this seems to be done emergently. Patient had a dark tarry stool again last night and a drop in his Hg. Was taken for EGD with evidence of gastric ulcer s/p clip. - Will be prepped for colonscopy as well - clear liquid diet and bowel prep - Trend hemoglobin - Cardiology considering changing Brillinta to Plavix (2) Symptomatic tachycardia Current Visit: Yes Status: Acute Assessment and Plan: Patient with history of CAD status post recent stent placement and HTN presents with palpitations in the setting of heart rate in the 140s initially sinus tachycardia but otherwise stable vitals, unremarkable physical exam, leukocytosis to 14.1, normal electrolytes, negative troponin, and chest imaging without evidence of acute pathology. -Appears that patient is in sinus tachycardia: Likely secondary to acute anemia from GI bleed Had some episodes of asystole overnight in telemetry. We will have cardiology review PLAN: - Interventions for GI bleed above - Telemetry - Orthostatics before discharge - Cardiology following (3) CAD (coronary artery disease) Current Visit: Yes Status: Acute Assessment and Plan: Patient had recent abnormal stress test so went for cardiac catheterization leading to RCA stent placement 12/02/18 without complications. - Continue home medications - We will consider switching Brillinta to Plavix before discharge (4) Hypertension Current Visit: Yes Status: Acute Assessment and Plan: Continue home medications DVT Prophylaxis: SCDs - Time Spent with Patient Total time spent is greater than 50% in coordination of care (as documented) at patient's floor/unit and/or counseling patient: Internal Medicine: Result - Labs CBC & Chem 7: 12/21/18 02:54 12/21/18 02:54 Labs: Short CBC 12/21/18 Range/Units 02:54 WBC 11.0 (4.3-11.1) K/mcL Hgb 10.6 L D (12.9-16.9) g/dL Hct 31.7 L (37.5-50.1) % Plt Count 228 (140-400) K/mcL Neutrophils # 8.4 (1.6-8.9) K/mcL BMP 12/21/18 02:54 Sodium 141 Potassium 3.2 L Chloride 109 H Carbon Dioxide 24 BUN 39 H Creatinine 0.94 Glucose 100 Calcium 8.2 L Cardiac Enzymes 12/20/18 Range/Units 18:37 Troponin I < 0.03 (< 0.04) ng/mL - ABG Interpretation ABG results: PT/INR, D-dimer PT 12.1 Seconds (9.4-12.1) 12/20/18 12:37 D-Dimer 2134 ng/mLFEU (0-500) H 12/20/18 12:37 Consult Discharge Plan - Plan Referrals: Abimbola Murcia MD [Primary Care Provider] - (3) CAD (coronary artery disease) Qualifiers: Coronary Disease-Associated Artery/Lesion type: [place] artery [place] vs. transplanted heart: [place] heart Associated angina: without angina Qualified Code(s): I25.10 - Atherosclerotic heart disease of [place] coronary artery without angina pectoris (4) Hypertension Qualifiers: Hypertension type: essential hypertension Qualified Code(s): I10 - Essential (primary) hypertension
[2018-12-21] MEDS ORDERED: SODIUM CHLORIDE/NAHCO3/KCL/PEG 4,000 ML SOLN.RECON PO ONE (17:00)
--- NOTE | 2018-12-21 17:37 | Electrocardiograph Report ---
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
--- NOTE | 2018-12-21 17:42 | Electrocardiograph Report ---
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
--- NOTE | 2018-12-21 18:51 | Anesthesia Evaluation PreOp ---
Date of Encounter: 12/21/18 Time of Encounter: 18:49 - Past History Planned Operation: Colonoscopy Cardiac History: HTN, Arrhythmia (AFib), Cardiac Stent (on brilinta from recent stent(10days ago)) Pulmonary History: Denies Any Significant HX FREIGHT ROUTER History: Denies Any Significant HX Other Medical History: Denies Any Significant HX Anesthesia History: No Prior Anesthetic Complications Alcohol Use: none Drug use: none Medications and Allergies Aspirin [Lo-Dose Aspirin EC] 81 mg PO DAILY 12/02/18 [History] Atorvastatin [Lipitor] 10 mg PO HS 12/02/18 [History] Cetirizine HCl [Allergy Relief] 10 mg PO DAILY 12/02/18 [History] Chlorthalidone 25 mg PO DAILY 12/02/18 [History] Docusate Sodium [Dulcolax Stool Softener] 100 mg PO DAILY 12/02/18 [History] Enalapril Maleate [Vasotec] 20 mg PO BID 12/02/18 [History] Metoprolol Succinate [Kapspargo Sprinkle] 25 mg PO DAILY 12/02/18 [History] Naproxen Sod/Diphenhydram HCl [Aleve Pm Caplet] 1 each PO HS PRN 12/02/18 [History] Potassium Chloride [K-Tab ER] 20 meq PO BID 12/02/18 [History] Terazosin HCl 10 mg PO DAILY 12/02/18 [History] Ticagrelor [Brilinta] 90 mg PO BID #60 tablet 12/02/18 [Rx] Allergy/AdvReac Type Severity Reaction Status Date / Time No Known Allergies Allergy Unverified 11/30/18 08:38 - Meds/Allergy Pre-op Review Medications Reviewed: Yes Allergies Reviewed: Yes Beta Blockers on Current Med List: Yes Anesthesia Results - Labs 12/21/18 02:54 12/21/18 02:54 - Imaging EKG: report reviewed (MULTIFOCAL ATRIAL TACHYCARDIA LOW QRS VOLTAGE IN PRECORDIAL LEADS INFERIOR MYOCARDIAL INFARCTION, PROBABLY OLD) Additional studies: 12/02/2018 LEFT HEART CATH Stent w/ PTCA Single Major Vessel (EBONY dRCA) Indications: Abnormal Test - Stress Other- Abnormal Test- Stress Impressions: There is severe one vessel coronary artery disease. The left ventricle is normal and has normal contractility EF 60% Patient had successful PTCA/Drug-Eluting Stent placement in the distal RCA. 12/02/2018 echocardiogram w enhance Impressions: LVEF 55-60%. Mild concentric left ventricular hypertrophy. Mild left ventricular diastolic dysfunction. Grossly normal right ventricular structure and function. No significant valvular dysfunction. Unable to estimate RVSP due to lack of TR jet and IVC visualization. Anesthesia Exam Vital Signs/O2 Sat, Most Current Temp Pulse Resp BP Pulse Ox 98.5 F 93 18 110/83 97 12/21/18 15:23 12/21/18 15:23 12/21/18 15:23 12/21/18 15:23 12/21/18 15:23 - HEENT Pupil (Motor): Pupils equal, EOMI Mallampati: II Teeth: Normal Oral Opening: Greater than 3 - FREIGHT ROUTER LOC: Oriented FREIGHT ROUTER Motor: Normal RUE, Normal LUE, Normal RLE, Normal LLE, Normal Face FREIGHT ROUTER Sensory: Normal: RUE, LUE, RLE, LLE, Face - Cardiac Rhythm: Irregular Murmur: None JVD: No Carotid Bruit: No - Pulmonary Breath Sounds: bilateral Clear Respiratory Effort: Symmetrical Anesthesia Assess/Plan ASA Score: 3 Anesthetic Plan: MAC Autologous Blood: Yes Monitoring Plan: Standard Monitors Recovery Plan: Other
[2018-12-22] MEDS: Pantoprazole 40 MG VIAL IVP SCH (06:23)
[2018-12-22] MEDS: Lisinopril 20 MG TABLET PO SCH (09:34)
[2018-12-22] MEDS: Aspirin Enteric Coated 81 MG Tablet PO SCH (09:34)
[2018-12-22] MEDS: Loratadine 10 MG TABLET PO SCH (09:35)
[2018-12-22] MEDS: *HR* Ticagrelor 90 MG TABLET PO SCH (09:35)
[2018-12-22] MEDS: Metoprolol XL (24 HR) Succ 25 MG TAB.ER.24H PO SCH (09:36)
--- NOTE | 2018-12-22 10:25 | Cardiology Progress Note ---
Date of Encounter: 12/22/18 Time of Encounter: 09:00 Assessment and Plan (1) Tachycardia Current Visit: Yes Status: Acute Appears to be ST vs. AT in the setting of acute GI bleed. Continue BB. Continue supportive care with IVF. Telemetry reviewed; noted to have frequent PACs, PVCs--similar to findings. TTE shows preserved LVEF 12/02/18. Will increase BB to improve palpitations. (2) CAD (coronary artery disease) Current Visit: Yes Status: Acute Hx of CAD s/p PCI to dRCA 12/02/18. EF preserved, otherwise mild non-obstructive CAD. Continue uninterrupted DAPT if able, continue statin, and BB. No chest pain. s/p Upper GI with clip placed on gastric ulcer on 12/21. Pending colonscopy today. Discussed with Dr. Peres; recommend continue DAPT with asa and brilinta. No further inpt recommendations, close outpatient follow-up. Qualifiers: Coronary Disease-Associated Artery/Lesion type: [place] artery [place] vs. transplanted heart: [place] heart Associated angina: without angina Qualified Code(s): I25.10 - Atherosclerotic heart disease of [place] coronary artery without angina pectoris (3) Melena Current Visit: Yes Status: Acute Discussion w patient/family: The assessment and plan as outlined above was discussed with the patient and/or family members who expressed understanding and agreement. All questions were answered. Thank you for involving us in the care of your patient. Please call with any questions. The patient will be discussed and reviewed with Dr. Peres; changes to be made accordingly. Subjective Principal diagnosis: Melena, sinus tachycardia Interval history: Seen and examined. Continues to c/o palpitations overnight. Completed GI prep, awaiting colonscopy later today. No chest pain or discomfort reported. Objective Vital Signs, Last 4 Hours Temp Pulse Resp BP Pulse Ox 12/22/18 08:35 98.2 F 105 16 114/89 97 General: Conversant, No Apparent Distress HEENT: Atraumatic, Normocephaly, Mucus Membranes Moist Cardiac: Reg Rate and Rhythm, Normal S1 and S2 Lungs: Normal Breath Sounds Neuro: Alert and responsive Abdomen: Soft Skin: No rashes noted on visualized skin Musculoskeletal: No Chest Wall Tenderness Extremities: No Edema, Normal Pulses Results 12/21/18 02:54 12/21/18 02:54 Active Medications Aspirin (Aspirin Ec) 81 mg PO DAILY [facility] Stop: 06/22/19 09:01 Last Admin: 12/22/18 09:34 Dose: 81 mg Documented by: Atorvastatin Calcium (Lipitor) 10 mg PO HS [facility] Stop: 06/21/19 21:01 Last Admin: 12/21/18 21:48 Dose: 10 mg Documented by: Chlorthalidone (Chlorthalidone) 25 mg PO DAILY [facility] Stop: 06/22/19 09:01 Last Admin: 12/22/18 09:35 Dose: 25 mg Documented by: Docusate Sodium (Colace) 100 mg PO DAILY [facility]; Protocol Stop: 06/22/19 09:01 Last Admin: 12/22/18 09:43 Dose: Not Given Documented by: Lisinopril (Zestril) 20 mg PO BID [facility] Stop: 06/21/19 21:01 Last Admin: 12/22/18 09:34 Dose: 20 mg Documented by: Loratadine (Claritin) 10 mg PO DAILY [facility] Stop: 06/22/19 09:01 Last Admin: 12/22/18 09:35 Dose: 10 mg Documented by: Metoprolol Succinate (Toprol Xl) 50 mg PO DAILY [facility] Stop: 06/24/19 09:01 Metoprolol Succinate (Toprol Xl) 25 mg PO ONCE ONE Stop: 12/22/18 11:01 Naloxone HCl (Narcan) 0.4 mg IVP Q2MPRN PRN PRN Reason: SEE COMMENTS Stop: 06/21/19 17:12 Pantoprazole Sodium (Protonix) 40 mg IVP Q12HR [facility] Stop: 06/22/19 08:33 Last Admin: 12/22/18 06:23 Dose: 40 mg Documented by: Potassium Chloride (Potassium Chloride) 40 meq PO BID [facility] Stop: 06/22/19 08:03 Last Admin: 12/22/18 09:34 Dose: 40 meq Documented by: Promethazine HCl (Phenergan) 12.5 mg IVP Q6HR PRN PRN Reason: Nausea And Vomiting Stop: 06/21/19 17:12 Terazosin HCl (Hytrin) 10 mg PO DAILY [facility] Stop: 06/22/19 09:01 Last Admin: 12/22/18 09:35 Dose: 10 mg Documented by: Ticagrelor (Brilinta) 90 mg PO BID [facility] Stop: 06/21/19 21:01 Last Admin: 12/22/18 09:35 Dose: 90 mg Documented by: - Imaging and Cardiology Echo: report reviewed - EKG Interpretation EKG results cardiology: personally reviewed Consult Discharge Plan - Plan Referrals: Abimbola Murcia MD [Primary Care Provider] -
[2018-12-22] MEDS ORDERED: Iron Sucrose Complex 400 MG in 0.9 % Sodium Chloride 250 ML IVPB ONE (10:55)
[2018-12-22] MEDS ORDERED: Metoprolol XL (24 HR) Succ 25 MG TAB.ER.24H PO ONE (11:00)
[2018-12-22] MEDS ORDERED: Propofol 500 MG/50 ML INFUS..BTL ONE (13:02)
[2018-12-22] MEDS ORDERED: *HR* PHENYLEPHRINE 1,000 MCG/10 ML SYRINGE IVP ONE (13:19)
[2018-12-22] MEDS ORDERED: 0.9 % Sodium Chloride 1,000 ML IVC SCH (13:45)
[2018-12-22 15:00] VITALS: BP 105/70
--- NOTE | 2018-12-22 15:03 | Discharge Summary ---
Orders not resulted at time of discharge: Pending orders 12/21/18 13:14 Surgical Pathology [PTH] Routine Date of Encounter: 12/22/18 Time of Encounter: 15:00 - Discharge Diagnosis (1) Melena Priority: Primary Status: Acute (2) Symptomatic tachycardia Priority: Secondary Status: Acute (3) CAD (coronary artery disease) Priority: Secondary Status: Acute Qualifiers: Coronary Disease-Associated Artery/Lesion type: [place] artery [place] vs. t ransplanted heart: [place] heart Associated angina: without angina Qualified Code(s): I25.10 - Atherosclerotic heart disease of [place] coronary artery without angina pectoris (4) Hypertension Priority: Secondary Status: Acute Qualifiers: Hypertension type: essential hypertension Qualified Code(s): I10 - Essential (primary) hypertension Hospital course: Mr. Bennett is a 73 year old male with history of CAD status post recent stent placement and HTN presented with symptomatic sinus tachycardia in the setting of recent melena and drop in Hg. Had EGD completedd with evidence of gastric ulcer s/p clipping by GI. Started on PPI. Ulcer likely related to recently started Brillinta and ASA. No evidence of bleeding at time of discharge. Stable at time of discharge. -Patient requested to be discharged after colonoscopy. Has Iron panel and ferritin pending that will need to be f/u on by PCP. If abnormal start oral iron. Also rec BMP and CBC. -Metoprolol was increased by cardiology. Discontinued chlorthalidone because electrolyte abnormalities and low-nl BP after metoprolol was increased. Will have patient continue potassium given low at time of d/c. Rec d/c this if K nl at PCP f/u apt. -Patient will f/u with cardiology and GI - Time Spent with Patient Total time spent providing and/or coordinating discharge services: - Discharge Medications Prescriptions: New Omeprazole [PriLOSEC] 40 mg PO BID #60 cap Metoprolol XL (24 HR) Succ [Toprol XL] 50 mg PO DAILY #30 tab.er.24h Continued Cetirizine HCl [Allergy Relief] 10 mg PO DAILY Enalapril Maleate [Vasotec] 20 mg PO BID Atorvastatin [Lipitor] 10 mg PO HS Docusate Sodium [Dulcolax Stool Softener] 100 mg PO DAILY Aspirin [Lo-Dose Aspirin EC] 81 mg PO DAILY Terazosin HCl 10 mg PO DAILY Potassium Chloride [K-Tab ER] 20 meq PO BID Ticagrelor [Brilinta] 90 mg PO BID #60 tablet Discontinued Chlorthalidone 25 mg PO DAILY Naproxen Sod/Diphenhydram HCl [Aleve Pm Caplet] 1 each PO HS PRN PRN Reason: Pain Metoprolol Succinate [Kapspargo Sprinkle] 25 mg PO DAILY Home Medications: Aspirin [Lo-Dose Aspirin EC] 81 mg PO DAILY 12/02/18 [History] Atorvastatin [Lipitor] 10 mg PO HS 12/02/18 [History] Cetirizine HCl [Allergy Relief] 10 mg PO DAILY 12/02/18 [History] Docusate Sodium [Dulcolax Stool Softener] 100 mg PO DAILY 12/02/18 [History] Enalapril Maleate [Vasotec] 20 mg PO BID 12/02/18 [History] Potassium Chloride [K-Tab ER] 20 meq PO BID 12/02/18 [History] Terazosin HCl 10 mg PO DAILY 12/02/18 [History] Ticagrelor [Brilinta] 90 mg PO BID #60 tablet 12/02/18 [Rx] Metoprolol XL (24 HR) Succ [Toprol XL] 50 mg PO DAILY #30 tab.er.24h 12/22/18 [Rx] Omeprazole [PriLOSEC] 40 mg PO BID #60 cap 12/22/18 [Rx] Allergies/Adverse Reactions: Allergy/AdvReac Type Severity Reaction Status Date / Time No Known Allergies Allergy Unverified 11/30/18 08:38 Date of admission: 12/20/18 17:10 Primary care physician: Abimbola Murcia Consults: 12/21/18 08:05 Consult to Cardiology [CONS] Routine Comment: Consulting Provider: Cardiology Tiffany Reason for Consult: symptomatic sinus tachycardia after stents 2 weeks ago Call Completed: Yes 12/21/18 08:30 Consult to Gastroenterology [CONS] Routine Consulting Provider: Gastroenterology Tiffany Reason for Consult: GIB after recent stents on Brillinta and ASA Call Completed: Yes - Constitutional Vitals: Temp Pulse Resp BP Pulse Ox 98.0 F 79 16 105/70 96 12/22/18 13:01 12/22/18 14:59 12/22/18 14:59 12/22/18 14:59 12/22/18 14:59 Exam: General: Ill-appearing and in no acute distress HEENT: No erythema of posterior pharynx. No exudates. Lymphatics: No mandibular or cervical lymphadenopathy Cardiovascular: RRR. No murmurs. No chest wall tenderness. Lungs: Clear to auscelltation bilaterally. Regular chest rise. Abdomen: Non-tender. No rebound or gaurding. Nl bowel sounds. Extremities: No edema. 2+ pulses radial and pedal pulses Skin: No rahses, abrasions, or contusions. Nl cap refill. Psych: Nl attention. A&Ox3 Neuro: oven builder II-XII intact. 5/5 strength. Sensation to light touch and pinprick intact. - Patient Status Disposition: Home, Self-Care Condition: Good Functional capacity at discharge: independent ambulation Overall status at discharge: patient is progressing back to baseline - Discharge Instructions Instructions: Metoprolol (By mouth), Omeprazole (By mouth) Follow Up With: Gisela Carbajal CNP [Partnered Physician] - 01/15/19 9:00 am Abimbola Murcia MD [Primary Care Provider] - 12/28/18 1:45 pm Lalo Garcia MD [Partnered Physician] - - Diet and Activity Activity: increase activity as tolerated Diet: low salt diet
[2018-12-22 15:22] LABS: % Iron Saturation 67 % (20-55); Iron 141 mcg/dL (65-175); Transferrin 150 mg/dL (203-362)
[2018-12-22 15:40] LABS: Ferritin 55 ng/mL (20-250)
[2018-12-22 16:12] LABS: BUN/Creatinine Ratio 20 (6-26); Blood Urea Nitrogen 18 mg/dL (8-23); Calcium 8.4 mg/dL (8.6-10.3); Carbon Dioxide 25 mEq/L (23-29); Chloride 108 mEq/L (98-107); Glucose 139 mg/dL (70-105); Osmolality,Calculated 290 (280-300); Potassium 3.6 mEq/L (3.5-5.1); Sodium 138 mEq/L (136-145); eGFR For African Americans > 60 (> 60); eGFR For Non-African Americans > 60 (> 60)
[2018-12-23] MEDS ORDERED: Metoprolol XL (24 HR) Succ 25 MG TAB.ER.24H PO SCH (09:00)
== END 2018-12-22 16:56 | disposition home or self-care (01) ==
LOC: EMEROOARM 12:13 → 2NENU 12:13 → SUATTDRO 17:10 → 2NENU 18:00
PROVIDERS: ADMIT Internal Medicine; ATTEND Internal Medicine
PROC: ENDOEBX (2018-12-21 13:00)